=== PATIENT | male | born 1940 | race Caucasian/White ===

== ENCOUNTER → 2017-08-13 | Outpatient (CLI) | payer MEDICARE, BC ==
[~2017-08-13] MED LIST: ALFUZOSIN HCL10 MG PO; ANTACID EXTRA1 EACH PO; ANTIVERT25 MG PO; CEFTIN500 MG PO; CLONAZEPAM0.5 MG PO; COLACE100 MG PO; LEVAQUIN250 MG PO; MYRBETRIQ50 MG PO; NEXIUM40 MG PO; NORCO 7.5-3251 EACH PO; PREVACID30 MG PO; PROAIR HFA INH8.5 GM INH; PROSCAR5 MG PO; SENNA LAXATIVE8.6 MG PO; SUCRALFATE1 GM PO; TYLENOL WITH C1 EACH PO; ULTRAM50 MG PO; UROXATRAL10 MG PO; ZOLOFT50 MG PO
--- NOTE | 2017-08-13 10:39 | Diagnostic Imaging Report ---
PROCEDURE: X-RAY CHEST, TWO VIEWS COMPARISON: [facility], CT, CT ABDOMEN/PELVIS WO, 03/07/2017, 18:36. INDICATIONS: FOLLOW UP FOR PARTIAL NEPHRECTOMY FINDINGS: LUNGS: No consolidations or edema. PLEURA: No effusions or pneumothorax. HEART \T\ MEDIASTINUM: The heart is prominent but unchanged. BONES \T\ SOFT TISSUES: No acute findings with multilevel degenerative changes and flowing osteophytosis of the thoracic spine. UPPER ABDOMEN: Multiple surgical clips are noted beneath the right hemidiaphragm. CONCLUSION: No acute thoracic abnormality. Macho Granger D.O. Dictated by: Macho Granger D.O. on 08/13/2017 at 10:39 Electronically approved by: Macho Granger D.O. on 08/13/2017 at 10:39
--- NOTE | 2017-08-13 11:30 | Diagnostic Imaging Report ---
PROCEDURE:US RETROPERITONEAL ( KIDNEY ). COMPARISON:Renal ultrasound 03/28/17, CT abdomen 03/07/17. INDICATIONS:Malignant Neoplasm Of Kidney, partial right nephrectomy TECHNIQUE: Rojas-scale and color sonographic images of the bilateral kidneys and bladder where obtained in transverse and longitudinal planes. FINDINGS: RIGHT KIDNEY: Measures 9.7 cm in length. Undulating contour of the lower pole corresponds postoperative changes Cysts: None Solid masses: None Stones: None Hydronephrosis: None Echogenicity: Mildly increased LEFT KIDNEY: Measures 4.5 cm in length. Cysts: Measured 11 x 14 x 12 mm in the interpolar cortex and is stable. Solid masses: A cortical bulge in the interpolar cortex measures 3.7 x 3.5 x 4.0 cm and is isoechoic to normal renal parenchyma. This was not identified on previous ultrasound. Stones: None Hydronephrosis: None Echogenicity: Normal Bladder: The tobias are diffusely thickened. Prostate: Measures 4.8 x 5.0 x 5.1 cm (previously, 5.5 x 5.0 x 5.9 cm) CONCLUSION: 1. Cortical bulge in the interpolar cortex of the left kidney is concerning for underlying soft tissue mass. Recommend further characterization with MRI. No contrast is needed. 2. Stable left renal cyst. 3. Stable postoperative appearance of the right kidney. 4. Improved prostate hypertrophy. Dictated by: Luis Alberto Bonilla M.D. on 08/13/2017 at 11:31 Electronically approved by: Luis Alberto Bonilla M.D. on 08/13/2017 at 11:31
--- NOTE | 2017-08-13 12:16 | Diagnostic Imaging Report ---
PROCEDURE:X-RAY ABDOMEN - KUB COMPARISON:CT/pelvis 03/07/17. INDICATIONS:FOLLOW UP FOR PARTIAL NEPHRECTOMY FINDINGS: BOWEL GAS PATTERN:Bowel gas pattern is normal. No dilated bowel loops. CALCIFICATIONS: 3 calcifications over the right renal shadow, with the largest measuring 3 mm. No calcifications along the expected course of the ureters. Multiple pelvic phleboliths Multiple surgical clips throughout the right dave-abdomen consistent with partial nephrectomy. BONES: Degenerative changes of the thoracolumbar spine are stable with mild levoscoliosis of the lumbar spine. CONCLUSION: Unremarkable bowel gas pattern. Calcifications in right kidney as described above. Dictated by: Luis Alberto Bonilla M.D. on 08/13/2017 at 12:16 Electronically approved by: LuisA lberto Bonilla M.D. on 08/13/2017 at 12:16
== END ==
LOC: US 09:36
PROVIDERS: ATTEND Urology
DX: C64.1 Malignant neoplasm of right kidney, except renal pelvis (principal); N28.1 Cyst of kidney, acquired; Z87.442 Personal history of urinary calculi
CPT/HCPCS: 71046; 74018; 76770

== ENCOUNTER → 2017-10-30 | Outpatient (CLI) | payer MEDICARE, BC ==
[~2017-10-30] MED LIST changes: +LORAZEPAM INJ 2 MG/ML VIAL ONE
--- NOTE | 2017-10-30 12:09 | Diagnostic Imaging Report ---
PROCEDURE:MRI ABDOMEN WO CONTRAST TECHNIQUE: Axial T1 in and out of phase, axial T2 fat-sat, coronal, T2 with and without fat-sat, axial DWI, and ADC MR images of the abdomen were performed without IV contrast. COMPARISON: MRI of the abdomen from 05/09/2015. INDICATIONS: Tumor on kidney FINDINGS: Limited examination due to motion artifact and the lack of intravenous contrast. LOWER THORAX: Linear opacities seen in the right lower lobe likely represent subsegmental atelectasis or scarring. LIVER: Normal hepatic size and contour. No hepatic signal abnormality. There are scattered cysts in liver which appear overall unchanged. BILIARY: No intra-or extrahepatic biliary ductal dilation. Gallbladder is absent. PANCREAS: No pancreatic ductal dilatation. The previously described 6 mm cystic appearing lesion in close proximity to the pancreatic duct (series 4, image 18) is unchanged. Other small T2 hyperintense lesions in close proximity of the pancreatic duct (work on image 17) appear unchanged. SPLEEN: No splenomegaly. ADRENALS: No nodules. KIDNEYS: Postsurgical changes from right partial nephrectomy. The previously described solid mass and cystic lesion in the right kidney are no longer present. 1.4 cm cystic appearing lesion in the left interpolar region (series 4, image 15) appears grossly unchanged, though it is incompletely evaluated without IV contrast. No hydronephrosis. GI TRACT: No bowel dilation or evidence of obstruction. Small hiatal hernia. PERITONEUM / RETROPERITONEUM: No upper abdominal free fluid. LYMPH NODES: No upper abdominal lymphadenopathy. VESSELS: Unremarkable. Incompletely evaluated without intravenous contrast. BONES AND SOFT TISSUES: Degenerative changes in the lumbosacral spine. IMPRESSION: 1. Limited examination due to motion artifact and the lack of intravenous contrast. 2. Status post right partial nephrectomy for solid renal mass. No recurrent solid renal masses. 3. Previously described subcentimeter, cystic-appearing lesion in the pancreatic head appears unchanged. There are other, smaller cystic-appearing lesions in the pancreatic head which are also unchanged. These could represent small pseudocysts or side branch intraductal papillary mucinous neoplasms. Dictated by: Irvin Rousseau M.D. on 10/30/2017 at 12:11 Electronically approved by: Irvin Rousseau M.D. on 10/30/2017 at 12:11
== END ==
LOC: MRI 10:04
PROVIDERS: ATTEND Urology
DX: C64.1 Malignant neoplasm of right kidney, except renal pelvis (principal)
CPT/HCPCS: 74181; J2060

== ENCOUNTER → 2018-03-06 | Outpatient (CLI) | payer MEDICARE, BC ==
[~2018-03-06] MED LIST changes: -LORAZEPAM INJ 2 MG/ML VIAL ONE
--- NOTE | 2018-03-06 10:51 | Diagnostic Imaging Report ---
PROCEDURE: Frontal and lateral views of the chest. COMPARISON: Chest radiograph 08/13/17. INDICATIONS: FOLLOW UP NEPHRECTOMY X2 YEARS FINDINGS: Lines/tubes: None. Lungs: Low lung volumes. Patchy opacity in the left lower lung. No evidence of pulmonary edema. Pleura: There is no pleural effusion or pneumothorax. Heart and mediastinum: The cardiomediastinal silhouette is unremarkable. Bones: No acute bony abnormality. IMPRESSION: No acute radiographic abnormality. Low lung volumes with patchy left basilar opacity, likely atelectasis. Dictated by: JEFF PATE M.D. on 03/06/2018 at 10:58 Electronically approved by: JEFF PATE M.D. on 03/06/2018 at 10:58
--- NOTE | 2018-03-06 11:01 | Diagnostic Imaging Report ---
PROCEDURE:X-RAY ABDOMEN - KUB COMPARISON:KUB 08/13/17. INDICATIONS:FOLLOW UP NEPHRECTOMY X 2YEARS FINDINGS: There is a non-obstructed bowel-gas pattern. Punctate calcifications measuring up to 3 mm overlying the right kidney are unchanged. No evidence of calcification along the expected course of the ureters. Clips throughout the right dave-abdomen status post partial nephrectomy are noted. No acute bony findings. Degenerative changes of the thoracolumbar spine. Moderate degenerative changes of bilateral hips, right greater than left. CONCLUSION: No acute radiographic abnormality. Similar appearance of right renal calcifications. Dictated by: JEFF PATE M.D. on 03/06/2018 at 11:08 Electronically approved by: JEFF PATE M.D. on 03/06/2018 at 11:08
--- NOTE | 2018-03-06 11:19 | Diagnostic Imaging Report ---
PROCEDURE:US RETROPERITONEAL ( KIDNEY ). COMPARISON:Renal ultrasound 08/13/17, MRI Abdomen 10/30/17. INDICATIONS:MALIGNANT NEOPLASM OF RIGHT KIDNEY/CALCULUS OF KIDNEY TECHNIQUE: Rojas-scale and color sonographic images of the bilateral kidneys and bladder where obtained in transverse and longitudinal planes. FINDINGS: RIGHT KIDNEY: Measures 9.1 cm in length. Post operative changes are noted in the right kidney. Cysts: None Solid masses: No specific evidence of solid mass. 5 mm echogenic area is noted in the right mid pole kidney. Stones: A 5 mm echogenic focus in the right mid pole kidney likely represents stone. Hydronephrosis: None Echogenicity: Mildly increased LEFT KIDNEY: Measures 4.5 cm in length. Cysts: An interpolar cyst measuring up to 1.4 cm is unchanged. Solid masses: An isoechoic cortical bulge in the interpolar cortex measures 3.7 x 3.5 x 4 cm, unchanged in appearance and size from prior ultrasound, and characterized as not representing mass on prior MRI. Stones: A 3 mm echogenic focus in the left inferior pole kidney, likely a stone. Hydronephrosis: None Echogenicity: Normal Bladder: Unremarkable, bilateral renal jets are present. Prostate: Measures 6 x 3.3 x 5.1 cm. Incidentally increased echogenicity of the liver is present. CONCLUSION: Stable postoperative appearance of the right kidney, no sonographic evidence of recurrent stolid mass. Stable left renal cyst and left interpolar cortical bulge. Bilateral non-obstructing renal stones. Prostatomegaly. Incidental fatty liver. Dictated by: JEFF PATE M.D. on 03/06/2018 at 11:25 Electronically approved by: JEFF PATE M.D. on 03/06/2018 at 11:25
== END ==
LOC: US 09:04
PROVIDERS: ATTEND Urology
DX: C64.1 Malignant neoplasm of right kidney, except renal pelvis (principal); N20.0 Calculus of kidney
CPT/HCPCS: 71046; 74018; 76770

== ENCOUNTER → 2018-04-01 | Outpatient (CLI) | payer MEDICARE, BC ==
--- NOTE | 2018-04-01 13:58 | Diagnostic Imaging Report ---
EXAMINATION: CT of the abdomen and pelvis without contrast. TECHNIQUE: Spiral CT images of the abdomen and pelvis were performed from the lung bases to the lesser trochanters. No intravenous contrast was given per iodinated contrast allergy. Coronal and sagittal reformatted images were obtained. COMPARISON: MRI of the abdomen 10/30/2017 CLINICAL HISTORY:Left lower quadrant pain, history of partial colectomy, partial right nephrectomy DISCUSSION: ABSENCE OF INTRAVENOUS CONTRAST DECREASES SENSITIVITY FOR DETECTION OF FOCAL LESIONS AND VASCULAR PATHOLOGY. ABDOMEN/PELVIS: LOWER THORAX: Linear opacity in the dependent lower lobes compatible with scar or subsegmental atelectasis. No pleural effusion. Atherosclerotic coronary artery calcifications. HEPATOBILIARY:No focal hepatic lesion or intrahepatic biliary ductal dilatation. The gallbladder has been removed with surgical clips in the gallbladder fossa. SPLEEN: No splenomegaly or focal splenic lesion. Left upper quadrant splenule. PANCREAS: No focal masses or ductal dilatation. ADRENALS: No adrenal nodules. KIDNEYS/URETERS: Postsurgical changes of partial right nephrectomy, stable in appearance relative to 10/30/2017 MRI. Punctate nonobstructing right lower pole renal calculus. Left kidney is notable for a punctate nonobstructing calculus (series 2 image 40). No hydronephrosis or mass lesion. PELVIC ORGANS/BLADDER: Urinary bladder is unremarkable. The prostate is enlarged, measuring 6.3 cm transversely, with mass effect upon the bladder base. PERITONEUM/RETROPERITONEUM: No ascites. No pneumoperitoneum. LYMPH NODES: No pelvic sidewall, retroperitoneal, or mesenteric lymphadenopathy. VESSELS: The abdominal aorta and iliac arterial systems are markedly tortuous, though nonaneurysmal. Evaluation is otherwise limited in the absence of intravenous contrast. GI TRACT: The large bowel shows no evidence of distention or wall thickening. There is inflammation of a lobule of fat adjacent to the anterior aspect of the proximal sigmoid colon, best seen on axial image 62 and coronal image 29. Postsurgical changes of partial right colectomy. Normal appendix. No small bowel dilatation to suggest obstruction. BONES AND SOFT TISSUES: No focal soft tissue abnormalities. No osseous destructive lesions. Degenerative disc changes and facet arthropathy of the lumbar spine, most notably at L2-L3 and L5-S1. IMPRESSION: Findings suggestive of epiploic appendagitis involving the proximal sigmoid colon. No perforation or drainable fluid collection. Stable postsurgical changes of partial right nephrectomy relative to abdominal MRI 10/30/2017. Bilateral nonobstructing renal calculi. Prostatomegaly. Atherosclerotic vascular disease. Findings were discussed in person with the patient Dr. Dunn as well as by telephone with the referring physician Dr. Caraballo at 1:50 PM on 04/01/2018. Signed by: Dr. Osman Oglesby M.D. on 04/01/2018 1:55 PM
== END ==
LOC: CT 12:40
PROVIDERS: ATTEND Family Medicine
DX: R10.32 Left lower quadrant pain (principal)
CPT/HCPCS: 74176

== ENCOUNTER → 2018-08-10 | Outpatient (CLI) | payer MEDICARE, BC ==
--- NOTE | 2018-08-10 11:22 | Diagnostic Imaging Report ---
EXAMINATION: Renal ultrasound. CLINICAL HISTORY :Partial obstructing COMPARISON: <None available.> TECHNIQUE: Grayscale and color Doppler evaluation of the kidneys and bladder was performed in transverse and longitudinal planes. DISCUSSION: RIGHT KIDNEY: Partial right nephrectomy with the right kidney measures 7.8 x 4.3 x 4.6 cm in length and shows normal echogenicity. No hydronephrosis, shadowing calculi or solid mass lesions. LEFT KIDNEY: The left kidney measures 13.1 x 5.3 x 4.4 cm in length and shows normal echogenicity. 1.1 cm cyst mid kidney. 0.5 cm echogenic focus mid kidney. BLADDER: Unremarkable. Prostate measures 5.5 x 3.3 x 4.5 cm. IMPRESSION: Right partial nephrectomy. No recurrent mass. Left kidney 1.1 cm simple cyst and 0.5 cm echogenic lesion may reflect calculus versus focus of fat. Prostate hypertrophy. Signed by: Dr. Karl Higgins M.D. on 08/10/2018 11:18 AM
--- NOTE | 2018-08-10 11:25 | Diagnostic Imaging Report ---
EXAM: CHEST 2 VIEWS, PA and lateral DATE: 08/10/2018 Time stamp on exam: 10:43 AM INDICATION: History of renal cancer COMPARISON: None FINDINGS: LINES/TUBES: There are clips in the upper abdomen. LUNGS: No consolidations or edema. No pulmonary nodules. PLEURA: No effusions or pneumothorax. HEART AND MEDIASTINUM: Normal size and contour. BONES AND SOFT TISSUES: No acute findings. Degenerative changes of the spine. IMPRESSION: No acute thoracic abnormality. Signed by: Dr. Macho Granger DO on 08/10/2018 11:21 AM
--- NOTE | 2018-08-10 12:20 | Diagnostic Imaging Report ---
Abdomen, 2 views dated 08/10/2018 at 10:50 AM. History: History of a right partial nephrectomy for cancer. Findings: The intestinal gas pattern is nonobstructive. Multiple clips in the right upper and mid abdomen. There no masses or abnormal calcifications. Pelvic calcifications compatible with phleboliths. Degenerative changes of the spine, hips and symphysis pubis. IMPRESSION: No acute abdominal abnormality. Signed by: Dr. Macho Granger DO on 08/10/2018 12:17 PM
== END ==
LOC: US 09:59
PROVIDERS: ATTEND Urology
DX: C64.1 Malignant neoplasm of right kidney, except renal pelvis (principal); N20.0 Calculus of kidney
CPT/HCPCS: 71046; 74018; 76770

== ENCOUNTER → 2018-09-18 | Outpatient (CLI) | payer MEDICARE, BC ==
--- NOTE | 2018-09-18 11:16 | Diagnostic Imaging Report ---
EXAMINATION: CT of the abdomen and pelvis without contrast. TECHNIQUE: Spiral CT images of the abdomen and pelvis were performed from the lung bases to the lesser trochanters. No intravenous contrast was given per renal stone protocol. Coronal and sagittal reformatted images were obtained. COMPARISON: 04/01/2018 CLINICAL HISTORY:Renal stone, patient reports history of partial nephrectomy DISCUSSION: ABSENCE OF INTRAVENOUS CONTRAST DECREASES SENSITIVITY FOR DETECTION OF FOCAL LESIONS AND VASCULAR PATHOLOGY. ABDOMEN/PELVIS: LOWER THORAX: Scattered linear opacities in the lung bases compatible with scar or subsegmental atelectasis. Left-sided Bochdalek diaphragmatic hernia contains fat. Mild cardiomegaly. HEPATOBILIARY:No focal hepatic lesion or intrahepatic biliary ductal dilatation. The gallbladder has been removed. SPLEEN: No splenomegaly. PANCREAS: No focal masses or ductal dilatation. ADRENALS: No adrenal nodules. KIDNEYS/URETERS: Status post partial right nephrectomy with unchanged 3 mm nonobstructing calculus in the remnant lower pole. Unchanged appearance of the surgical bed. Punctate nonobstructing left interpolar renal calculus is also unchanged. No hydronephrosis. No ureteral or bladder calculi. PELVIC ORGANS/BLADDER: Urinary bladder is incompletely distended but otherwise unremarkable. The prostate is enlarged, measuring 6 cm transversely with mass effect upon the bladder base, unchanged. PERITONEUM/RETROPERITONEUM: No ascites. No pneumoperitoneum. LYMPH NODES: No pelvic sidewall, retroperitoneal, or mesenteric lymphadenopathy. VESSELS: Limited evaluation without intravenous contrast. The abdominal aorta and iliac arterial systems are markedly tortuous without aneurysmal dilatation. Atherosclerotic calcifications throughout. GI TRACT: The large bowel shows no distention or wall thickening, though the distal sigmoid colon is collapsed and poorly evaluated. Resolution of inflammatory changes along the anterior aspect of the sigmoid colon. Postsurgical changes along the hepatic flexure. The appendix is normal. No small bowel dilatation to suggest obstruction. BONES AND SOFT TISSUES: No osseous destructive lesions. Multilevel degenerative disc changes and facet arthropathy of the thoracolumbar spine. Degenerative changes of the hips. Healed fracture deformity of the posterior right 10th rib. Postsurgical changes of the right flank related to partial nephrectomy. Otherwise no focal soft tissue abnormality. IMPRESSION: Stable postsurgical changes of partial right nephrectomy relative to CT abdomen and pelvis 04/01/2018. Bilateral nonobstructing renal calculi, also unchanged. Prostatomegaly. Atherosclerotic vascular disease. Signed by: Dr. Osmna Oglesby M.D. on 09/18/2018 11:13 AM
== END ==
LOC: CT 10:27
PROVIDERS: ATTEND Urology
DX: N20.0 Calculus of kidney (principal)
CPT/HCPCS: 74176

== ENCOUNTER → 2019-01-25 | Outpatient (CLI) | payer MEDICARE, BC ==
--- NOTE | 2019-01-25 18:59 | Diagnostic Imaging Report ---
EXAM: CT Abdomen and Pelvis WITHOUT contrast INDICATION: ^[id number] ^[id number] ^RLQ PAIN COMPARISON: CT abdomen/pelvis, 09/18/2018 TECHNIQUE: Abdomen and pelvis were scanned utilizing a multidetector helical scanner from the lung base to the pubic symphysis without administration of IV contrast. Absence of intravenous contrast decreases sensitivity for detection of focal lesions and vascular pathology. Coronal and sagittal reformations were obtained. Routine protocol was performed. Dose modulation, iterative reconstruction, and/or weight based adjustment of the mA/kV was utilized to reduce the radiation dose to as low as reasonably achievable. IV CONTRAST: None. ORAL CONTRAST: None RADIATION DOSE: Total DLP: 566.79 mGy*cm Estimated effective dose: (DLP x 0.015 x size factor) mSv COMPLICATIONS: None FINDINGS: LINES and TUBES: Intracardiac leads are noted. LOWER THORAX: Lung bases clear. Left Bochdalek hernia again noted. Heart size normal with trace pericardial effusion. HEPATOBILIARY: No focal hepatic lesions. No biliary ductal dilation. GALLBLADDER: Cholecystectomy with surgical clips. SPLEEN: No splenomegaly. PANCREAS: No focal masses or ductal dilatation. ADRENALS: No adrenal nodules KIDNEYS/URETERS: Stable appearance of right partial nephrectomy. No hydronephrosis. No cystic or solid mass lesions. Stable small nonobstructing bilateral intrarenal calculi again noted. GI TRACT: No abnormal distention, wall thickening, or evidence of bowel obstruction. Postsurgical changes again seen at the hepatic flexure. Appendix is normal. PELVIC ORGANS/BLADDER: Urinary bladder not well distended but overall unremarkable. No discrete abnormal mass or fluid collection in the pelvis. Again noted is prostatic enlargement with a diameter of 6.8 cm. LYMPH NODES: No lymph node masses seen in the abdomen, retroperitoneum or pelvis. VESSELS: The aortoiliac vessels are atherosclerotic and tortuous. There is no aneurysm. PERITONEUM / RETROPERITONEUM: No free air or fluid. BONES: Degenerative changes in the spine. No acute or suspicious bony lesion. SOFT TISSUES: Superficial surrounding soft tissue unremarkable. IMPRESSION: . 1. No CT evidence for acute abdominal or pelvic pathology. 2. Stable appearance of partial right nephrectomy. 3. Stable small bilateral nonobstructing intrarenal calculi. No hydronephrosis. Staff: Lior Signed by: Dr. Kenroy Tinajero M.D. on 01/25/2019 6:55 PM
== END ==
LOC: CT 17:07
PROVIDERS: ATTEND Family Medicine
DX: R10.31 Right lower quadrant pain (principal)
CPT/HCPCS: 74176

== ENCOUNTER → 2020-03-20 | Outpatient (CLI) | payer MEDICARE, BC ==
[~2020-03-20] MED LIST changes: +GABAPENTIN100 MG PO; +LISINOPRIL2.5 MG PO; +SODIUM CITRATE PO; +VITAMIN C500 M4 PO; +VITAMIN D400 UNIT PO
== END ==
LOC: CT 17:15
PROVIDERS: ATTEND Urology
DX: N20.0 Calculus of kidney (principal)
CPT/HCPCS: 74176

== ENCOUNTER → 2020-12-15 | Outpatient (CLI) | payer MEDICARE, BC | LOC: CT 09:15 | PROVIDERS: ATTEND Urology | DX: N20.0 Calculus of kidney (principal) | CPT/HCPCS: 74176 ==

== ENCOUNTER → 2021-11-05 | Outpatient (CLI) | payer MEDICARE, BC | LOC: NM 10:28 | PROVIDERS: ATTEND Urology | DX: E21.3 Hyperparathyroidism, unspecified (principal) | CPT/HCPCS: 78071; A9512 ==

== ENCOUNTER → 2022-01-24 | Outpatient (CLI) | payer MEDICARE, BC | LOC: CT 15:38 | PROVIDERS: ATTEND Urology | DX: N20.0 Calculus of kidney (principal) | CPT/HCPCS: 74176 ==

== ENCOUNTER → 2022-08-12 | Outpatient (CLI) | payer MEDICARE, BC | LOC: CT 12:03 | PROVIDERS: ATTEND Urology | DX: C64.1 Malignant neoplasm of right kidney, except renal pelvis (principal); D44.10 Neoplasm of uncertain behavior of unspecified adrenal gland; N20.0 Calculus of kidney; D41.01 Neoplasm of uncertain behavior of right kidney | CPT/HCPCS: 71046; 74176; 76770 ==